=== PATIENT | male | born 1955 | race Caucasian/White ===

== ENCOUNTER → 2022-11-19 13:17 | Outpatient (BNVA) | payer MEDICARE, SELFPAY | PROVIDERS: Family Provider Family Medicine; Visit Provider Family Medicine | DX: R35.0 Frequency of micturition (principal); R39.15 Urgency of urination; N40.1 Benign prostatic hyperplasia with lower urinary tract symptoms; R39.11 Hesitancy of micturition; R30.0 Dysuria; M25.552 Pain in left hip | CPT/HCPCS: 81000 ==

== ENCOUNTER → 2023-04-29 09:07 | Outpatient (BNVA) | payer MEDICARE, SELFPAY | PROVIDERS: Family Provider Family Medicine; PCP Family Medicine; Visit Provider Family Medicine | DX: N40.1 Benign prostatic hyperplasia with lower urinary tract symptoms (principal); R39.11 Hesitancy of micturition; Z13.6 Encounter for screening for cardiovascular disorders; Z87.891 Personal history of nicotine dependence | CPT/HCPCS: 80053; 80061; 85025 ==

== ENCOUNTER → 2023-05-04 11:46 | Outpatient (BNVA) | payer MEDICARE, SELFPAY | PROVIDERS: Family Provider Family Medicine; PCP Family Medicine; Referring Provider Family Medicine; Visit Provider Anesthesiology Pain Medicine | DX: M47.896 Other spondylosis, lumbar region (principal); M54.50 Low back pain, unspecified; G89.29 Other chronic pain; M25.559 Pain in unspecified hip | CPT/HCPCS: 72110; 73521; 73522; 99204 ==

== ENCOUNTER → 2023-05-24 13:19 | Outpatient (BNVA) | payer MEDICARE, SELFPAY | PROVIDERS: Family Provider Family Medicine; PCP Family Medicine; Visit Provider Anesthesiology Pain Medicine | DX: M70.62 Trochanteric bursitis, left hip; M16.12 Unilateral primary osteoarthritis, left hip | CPT/HCPCS: 20610; 77002; J1030; J3490 ==

== ENCOUNTER 2023-05-25 06:37 | Outpatient (CLI) | payer MEDICARE, SELFPAY ==
--- NOTE | 2023-05-25 07:00 | USCV_ITS ---
Mitchel Arroyo Age: 67 Gender: M : 1955 Exam Date: 05/25/2023 06:51 Ordering Phys: Monty Maldonado MD Technologist: ALMITA Exam Location: [facility] [place] Indication: AAA SCREENING HISTORY: Diameter (cm) AP x Transverse x Length Velocity (cm/s) Waveform Prox Aorta: 2.52 x 2.76 x 75.20 Triphasic Mid Aorta: 2.26 x 2.46 x 103.10 Triphasic Distal Aorta: 2.11 x 1.93 x 85.90 Triphasic Right Iliac Prox: 0.88 x 1.12 x 70.50 Triphasic Left Iliac Prox: 1.00 x 1.10 x 82.70 Triphasic Stent Prox Landing x x Aneurysmal Sac Max x x Lt Lat Sac Dim Rt Lat Sac Dim Stent Dist Landing x x Right Iliac Stent x x Left Iliac Stent x x Right Renal Art Left Renal Art FINDINGS: Comparison: none available. Ectatic abdominal aorta with evidence of atherosclerotic plaque noted. No evidence of abdominal aortic aneurysm. There is evidence of atherosclerotic plaque no significan stenosis in the right common iliac artery. There is evidence of atherosclerotic plaque no significan stenosis in the left common iliac artery. CONCLUSIONS Ectatic abdominal aorta with evidence of atherosclerotic plaque noted. No evidence of abdominal aortic aneurysm. Dr. Roslyn Perez DO (Electronically Signed) Final Date: 25 May 2023 09:18 S
== END 2023-05-25 06:38 | disposition home or self-care (01) ==
PROVIDERS: PCP Family Medicine; Visit Provider Family Medicine
DX: Z13.6 Encounter for screening for cardiovascular disorders (principal); Z87.891 Personal history of nicotine dependence; I77.811 Abdominal aortic ectasia
CPT/HCPCS: 93978

== ENCOUNTER → 2023-06-07 10:39 | Outpatient (BNVA) | payer MEDICARE, SELFPAY | PROVIDERS: PCP Family Medicine; Visit Provider Anesthesiology Pain Medicine | DX: M70.62 Trochanteric bursitis, left hip; Y93.9 Activity, unspecified | CPT/HCPCS: 99213 ==

== ENCOUNTER → 2023-12-09 09:33 | Outpatient (BNVA) | payer MEDICARE, SELFPAY | PROVIDERS: PCP Family Medicine; Visit Provider Family Medicine | DX: M25.562 Pain in left knee (principal) | CPT/HCPCS: 73562 ==

== ENCOUNTER → 2024-02-01 09:41 | Outpatient (BNVA) | payer MEDICARE, SELFPAY | PROVIDERS: PCP Family Medicine; Visit Provider Anesthesiology Pain Medicine | DX: M70.62 Trochanteric bursitis, left hip; M16.12 Unilateral primary osteoarthritis, left hip | CPT/HCPCS: 99213 ==

== ENCOUNTER → 2024-06-15 10:41 | Outpatient (BNVA) | payer MEDICARE, SELFPAY | PROVIDERS: PCP Family Medicine; Visit Provider Family Medicine | DX: N40.1 Benign prostatic hyperplasia with lower urinary tract symptoms (principal); R39.11 Hesitancy of micturition; E78.5 Hyperlipidemia, unspecified | CPT/HCPCS: 80053; 80061; 84439; 84443; 85025 ==

== ENCOUNTER → 2025-04-19 10:46 | Outpatient (BNVA) | payer MEDICARE, SELFPAY | PROVIDERS: PCP Family Medicine; Visit Provider Family Medicine | DX: E78.5 Hyperlipidemia, unspecified (principal) | CPT/HCPCS: 80053; 80061; 84439; 84443; 85025 ==

== ENCOUNTER → 2025-04-25 11:33 | Outpatient (BNVA) | payer MEDICARE, SELFPAY | PROVIDERS: PCP Family Medicine; Visit Provider Student in an Organized Health Care Education/Training Program | DX: K40.90 Unilateral inguinal hernia, without obstruction or gangrene, not specified as recurrent (principal) | CPT/HCPCS: 99204 ==

== ENCOUNTER 2025-05-02 14:01 | Outpatient (CLI) | payer MEDICARE, SELFPAY ==
[2025-05-02] MEDS: iohexol 350 mg/mL 500 mL Btl (per mL) IV (14:15)
--- NOTE | 2025-05-02 14:15 | CTR_ITS ---
PROCEDURE INFORMATION: Exam: CT Abdomen And Pelvis With Contrast Exam date and time: 05/02/2025 2:13 PM Age: 69 years old Clinical indication: Condition or disease; Hernia; Complications not specified; Inguinal; Additional info: Inguinal heria, iv contrast only. No history of recent trauma or surgery is provided. TECHNIQUE: Imaging protocol: Computed tomography of the abdomen and pelvis with contrast. 233image(s) are provided. Radiation optimization: All CT scans at this facility use at least one of these dose optimization techniques: automated exposure control; mA and/or kV adjustment per patient size (includes targeted exams where dose is matched to clinical indication); or iterative reconstruction. Contrast material: OMNI 350; Contrast volume: 100 ml; Contrast route: INTRAVENOUS (IV); Other technique: Axial images are available with sagittal and coronal reconstruction views. Automated dose exposure control is utilized. The DLP is 508.98. COMPARISON: CR XR hip BI 3-4V wo/w pel [id number] 05/04/2023 11:[address] is currently available. RADIATION DOSE METRICS: Total DLP (mGy-cm): 508.98 FINDINGS: Lungs: No lobar consolidation is appreciated. There is minimal subsegmental atelectasis versus post inflammatory reticulonodular scarring demonstrated. Heart: No significant pericardial fluid collection is appreciated. Coronary arteries: There appear to be some coronary arterial calcifications present. Liver: There appears to be some subtle low-density of the liver overall along with some calcific related change and subcentimeter cystic foci too small to characterize. Gallbladder and biliary ducts: There appears to be some trace gallbladder sludge. Pancreas: No pancreatic ductal dilatation or calculus is currently appreciated. Spleen: Unremarkable. Adrenal glands: Unremarkable. Kidneys and ureters: There is homogeneous renal parenchymal enhancement with no radiopaque obstructive calculus or hydronephrosis appreciated. There is some minimal fluid dense appearance. Stomach and bowel: Some aspects of the colon are undistended. This may also be peristaltic related.There is some stool present limiting mucosal detail evaluation.The bowel gas pattern appears overall nonobstructive. There is a small sliding-type hiatal hernia demonstrated with slight gastroesophageal fold thickening. There is some ingested bowel content present. There is some colonic diverticulosis present. Appendix: No evidence of appendicitis. Intraperitoneal space: No free air or significant free fluid collections are appreciated. Vasculature: No abdominal aortic saccular aneurysmal dilatation is appreciated with some chronic atherosclerotic related changes. Lymph nodes: There are subcentimeter predominant para-aortic and mesenteric lymph nodes overall present. Urinary bladder: The bladder contours appear grossly unremarkable overall. Reproductive: There appears to be some prostate hypertrophy overall and calcific related change. This is density adjacent bladder margin. Consider PSA. Bones/joints: No interval displaced fracture or dislocation is appreciated.There are some degenerative changes of the hips and spine overall present. There are some chronic appearing rib deformities present. Soft tissues: No radiopaque foreign body or subcutaneous emphysema is appreciated. No subcutaneous fluid collections are appreciated. There is history of inguinal hernia provided correspondingly on the left containing a small portion of the colon of the descending, sigmoid junction. No significant fluid collection or adjacent stranding changes are currently appreciated. Consider if there is history of intermittent change or reduce ability. No proximal colonic segmental distribution dilatation is currently appreciated. There is some motion artifact present. No other significant interval changes are appreciated. CT/CT abdomen pelvis w con* [id number] IMPRESSION: There is a small left inguinal hernia containing descending, sigmoid junction colon. No significant adjacent fluid or inflammatory stranding changes are currently appreciated.
== END 2025-05-02 14:02 | disposition home or self-care (01) ==
LOC: RAD 14:01
PROVIDERS: PCP Family Medicine; Visit Provider Student in an Organized Health Care Education/Training Program
DX: K40.90 Unilateral inguinal hernia, without obstruction or gangrene, not specified as recurrent (principal)
CPT/HCPCS: 74177

== ENCOUNTER → 2025-06-17 13:12 | Outpatient (BNVA) | payer MEDICARE, SELFPAY | PROVIDERS: PCP Family Medicine; Visit Provider Emergency Medicine | DX: R39.9 Unspecified symptoms and signs involving the genitourinary system (principal); R30.0 Dysuria | CPT/HCPCS: 81000; 87077; 87086; 87184 ==

== ENCOUNTER 2025-08-13 10:41 | Outpatient (CLI) | payer MEDICARE, SELFPAY ==
--- NOTE | 2025-08-13 10:46 | XRR_ITS ---
PROCEDURE INFORMATION: Exam: XR Right Shoulder Exam date and time: 08/13/2025 10:51 AM Age: 69 years old Clinical indication: Pain; Shoulder; Right; Additional info: Shoulder pain TECHNIQUE: Imaging protocol: Radiologic exam of the right shoulder. Views: 2 or more views. COMPARISON: No relevant prior studies available. FINDINGS: Bones/joints: Calcific densities project adjacent to the upper outer proximal humerus, rotator cuff insertion region, possibly calcific tendinitis/bursitis/periarthritis. Degenerative changes AC joint with some hypertrophic bony changes protruding inferiorly. Correlate for impingement or other process. Probable small sclerotic bone island humeral head. No new appearing displaced fracture nor dislocation seen of shoulder. Degenerative changes spine. Soft tissues: Normal. XR/XR shoulder RT min 2V* [id number] IMPRESSION: 1. Correlate for calcific tendinitis/bursitis both periarthritis. 2. Degenerative changes AC joint with some hypertrophic bony changes protruding inferiorly. Correlate for impingement or other process.
== END 2025-08-13 10:42 | disposition home or self-care (01) ==
LOC: RAD 10:43
PROVIDERS: PCP Family Medicine; Visit Provider Family Medicine
DX: M75.41 Impingement syndrome of right shoulder (principal); R93.89 Abnormal findings on diagnostic imaging of other specified body structures; M19.011 Primary osteoarthritis, right shoulder; R93.7 Abnormal findings on diagnostic imaging of other parts of musculoskeletal system
CPT/HCPCS: 73030

== ENCOUNTER → 2025-08-20 16:35 | Outpatient (BNVA) | payer MEDICARE, SELFPAY | PROVIDERS: PCP Family Medicine; Visit Provider Emergency Medicine | DX: R39.89 Other symptoms and signs involving the genitourinary system (principal) | CPT/HCPCS: 81000; 87086 ==